=== PATIENT | female | born 1980 | race Two or more races ===

== ENCOUNTER 2019-07-01 23:51 | Observation (INO) | payer BC, OTHER ==
[~2019-07-01] VITALS: Ht 167.6 cm; Wt 70.7 kg
[2019-07-02] VITALS (13 sets, daily range): BP systolic 103–128; BP diastolic 58–77
--- NOTE | 2019-07-02 01:30 | NUR ---
MD Cross at bedside. He reviewed her meds and reports she is being treated for H-pylori. at bedside.
[2019-07-02] MEDS ORDERED: LANS30CA37 PO (01:32)
[2019-07-02] MEDS ORDERED: CLAR500T PO (01:33)
[2019-07-02] MEDS ORDERED: AMOX500C2 PO (01:33)
[2019-07-02] MEDS ORDERED: normal saline 1000ML IV soln IVB ONE (01:35)
--- NOTE | 2019-07-02 01:39 | NUR ---
reports no need for iv or labs or urine. Addendum: 07/02/19 at 0139 by OFELIA orders for piv and ivf, no labs needed per dr. ladd
[2019-07-02 02:10] LABS: BASOPHILS # (AUTO) 0.1 X10'3 (0-0.2); BASOPHILS % (AUTO) 1.5 % (0-1); EOSINOPHILS # (AUTO) 0.1 X10'3 (0-0.9); EOSINOPHILS % (AUTO) 0.6 % (0-6); HEMATOCRIT 37.1 % (35.0-45.0); HEMOGLOBIN 12.8 g/dl (12.0-16.0); LYMPHOCYTES # (AUTO) 1.3 X10'3 (1.1-4.8); LYMPHOCYTES % (AUTO) 14.5 % (21-51); MEAN CORPUSCULAR HEMOGLOBIN 31.2 PG (27.0-31.0); MEAN CORPUSCULAR HGB CONC 34.5 g/dL (33.0-36.5); MEAN CORPUSCULAR VOLUME 90.5 FL (78-98); MEAN PLATELET VOLUME 8.1 FL (7.4-10.4); MONOCYTES # (AUTO) 0.7 X10'3 (0-0.9); MONOCYTES % (AUTO) 8.1 % (2-12); NEUTROPHILS % (AUTO) 75.3 % (42-75); PLATELET COUNT 205 X10'3 (140-440); RED CELL DISTRIBUTION WIDTH 12.5 % (11.5-14.5); WHITE BLOOD COUNT 9.3 X10'3 (4.5-11.0)
[2019-07-02 02:27] LABS: ALANINE AMINOTRANSFERASE 153 U/L (12-78); ALBUMIN 3.7 G/DL (3.4-5.0); ALKALINE PHOSPHATASE 125 IU/L (46-116); ANION GAP 11 (8-16); ASPARTATE AMINO TRANSFERASE 229 U/L (10-37); BILIRUBIN,TOTAL 0.9 MG/DL (0.1-1.0); BLOOD UREA NITROGEN 14 MG/DL (7-18); CALCIUM 8.7 MG/DL (8.5-10.1); CHLORIDE 107 MMOL/L (99-107); GLUCOSE 125 MG/DL (70-104); LIPASE 320 U/L (73-393); POTASSIUM 3.3 MMOL/L (3.5-5.1); SODIUM 143 MMOL/L (135-145); TOTAL CARBON DIOXIDE 25.5 MMOL/L (24-32); TOTAL PROTEIN 7.3 G/DL (6.4-8.2); eGFR > 90 ML/MIN
--- NOTE | 2019-07-02 03:07 | NUR ---
abd us completed, awaiting read. pt up to br to void with steady gait. 1 liter ns infused, currentl vss. remains at bedside. pt reports she is feeling better than when she arrived and pain now down to 5 out of 10. denies any nause.a
--- NOTE | 2019-07-02 04:55 | NUR ---
PT TO BE ADMITTED, AWAITING HOSPITALIST, REMAINS AT BEDSIDE.
--- NOTE | 2019-07-02 05:04 | NUR ---
dr garcia at bedside to admit patient
[2019-07-02] MEDS ORDERED: potassium CL 10mEq/100ml bag 100 ML IV PRN ×2 (05:15)
[2019-07-02] MEDS ORDERED: ondansetron/PF 4mg/2ml inj IV PRN ×2 (05:15→12:00)
[2019-07-02] MEDS ORDERED: morphine 2 MG/ML inj. syringe IV PRN ×2 (05:15)
[2019-07-02] MEDS ORDERED: magnesium hydroxide 30ml (MOM) UD suspension PO PRN (05:15)
[2019-07-02] MEDS ORDERED: potassium Cl 20 mEq SR tablet PO PRN (05:15)
[2019-07-02] MEDS ORDERED: mag hydrox/Alum hydrox/simeth 30ml oral suspension PO PRN (05:15)
[2019-07-02] MEDS ORDERED: acetaminophen 325mg tablet PO PRN (05:15)
[2019-07-02] MEDS: potassium Cl 20 mEq SR tablet PO PRN ×2 (07:16→17:56)
--- NOTE | 2019-07-02 07:30 | NUR ---
Patient in room PAS IN 900. I have received report from Jonathan CA and had the opportunity to ask questions and assume patient care.
[2019-07-02] MEDS ORDERED: K and/or MAG REPLACEMENT MC SCH (08:00)
[2019-07-02] MEDS: dextrose 5%-1/2 normal saline 1,000 ML IV SCH ×2 (10:47→17:57)
--- NOTE | 2019-07-02 11:12 | NUR ---
Problems reprioritized. Patient report given, questions answered & plan of care reviewed with Mikaela CA.
[2019-07-02] MEDS ORDERED: BUPIVAcaine/PF 2.5 mg/ml (0.25%) 30ml vial ONE (11:39)
[2019-07-02] MEDS ORDERED: LIDOcaine 1% 30ml preserv. free vial ONE (11:39)
--- NOTE | 2019-07-02 11:45 | NUR ---
Problems reprioritized. Patient report given, questions answered & plan of care reviewed with Liliana CA.
[2019-07-02] MEDS ORDERED: sevoflurane 250ml liquid IH ONE (11:56)
[2019-07-02] MEDS ORDERED: ringers solution, lacted 1,000 ML IV SCH (11:57)
[2019-07-02] MEDS ORDERED: morphine 4 MG/ML inj SYRINge IV PRN ×2 (12:00)
[2019-07-02] MEDS ORDERED: meperidine/PF 25mg/ml syringe IV PRN ×3 (12:00)
[2019-07-02] MEDS ORDERED: proCHLORperazine 10 MG/2 ml inj IV PRN (12:00)
[2019-07-02] MEDS ORDERED: fentaNYL/PF 50MCG/1 ML 2ML syringe ONE (12:01)
[2019-07-02] MEDS ORDERED: midazolam 2 mg/2 ml injection ONE (12:01)
[2019-07-02] MEDS ORDERED: propofol inj 20 ML IV ONE (12:01)
[2019-07-02] MEDS ORDERED: rocuronium 10mg/ml inj IV ONE (12:01)
[2019-07-02] MEDS ORDERED: ceFAZolin 1000mg inj ONE ×2 (12:01→12:02)
[2019-07-02] MEDS ORDERED: neostigmine methylsulfate 1 MG/ML 10ml vial ONE (13:07)
[2019-07-02] MEDS ORDERED: glycopyrrolate 0.2mg/ml inj ONE (13:07)
[2019-07-02] MEDS ORDERED: HYDROcodone/acetaminophen 5mg/325mg tablet PO PRN (13:20)
[2019-07-02] MEDS ORDERED: HYDROcodone/acetaminophen 10/325mg tab PO PRN (13:20)
--- NOTE | 2019-07-02 13:35 | NUR ---
Received from OR via BED, accompanied by Anesthesiologist PHU and report given by Anesthesiolgist. PT DROWSY, OXYGENATING WELL ON 10 LPM O2 VIA MASK, NO RESP DISTRESS NOTED. PT DEIES NAUSEA OR PAIN. LG BANDAIDS TO 4 ABD LAP SITES, CDI. SCDS ON. VSS.
--- NOTE | 2019-07-02 15:00 | NUR ---
Report called to receiving nurse. Transferred via BED Belongings IN PT ROOM. FENTANYL WAS GIVEN BY ANESTESIA , PT STATES HER ABD PAIN IS BETTER, TRENDING DOWN. NAUSEA RESOLVED AFTER ZOFRAN GIVEN. PT TOLERATING ICE CHIPS. VSS. [facility]CO PRESCRIPTION GIVEN TO PT TO HAVE FILLED PRIOR TO HER DC. PT TRANSFERRED TO 3 SURG IN STABLE CONDITION. Special Issues communicated to receiving nurse.
[2019-07-02] MEDS ORDERED: HYDR-4383 PO (18:43)
--- NOTE | 2019-07-02 19:03 | NUR ---
GAVE REPORT TO BECKY CA.
--- NOTE | 2019-07-02 19:03 | NUR ---
pt stable for discharge. pt left via private vehicle with family to home. all lines dc'd. IV removed, cannula intact. discharge paperwork given and signed. education given. pt stable and appropriate for discharge. medication were delivered bedside and in the pt's purse.
== END 2019-07-02 19:04 | disposition home or self-care (01) ==
LOC: ER 23:54 → ORTHO 4S 07-02 07:05 → PAS IN 07-02 11:17 → SUR 3N 07-02 15:15
PROVIDERS: ADMIT Hospitalist; ATTEND Internal Medicine
DX: K80.00 Calculus of gallbladder with acute cholecystitis without obstruction (principal); E87.6 Hypokalemia; R74.0 Nonspecific elevation of levels of transaminase and lactic acid dehydrogenase [LDH]
CPT/HCPCS: 36415; 47562; 76700; 80053; 83690; 85025; 87081; 93005; 96374; 96375; 99284; G0378; J0690; J2001; J2250; J2270; J2405; J2704; J2710; J3010; J3490; J7120; 96360; 99285; A4215; A4618; A7000